=== PATIENT | female | born 1935 | race Caucasian/White ===

== ENCOUNTER 2021-03-16 11:19 | Emergency (ER) | payer MEDICARE, BC, SELFPAY ==
--- NOTE | 2021-03-16 11:26 | ED.URI ---
HPI - URI/Sore Throat General Chief Complaint: Upper Respiratory Infection Stated Complaint: upper respiratory Time Seen by Provider: 03/16/21 11:26 Source: patient and RN notes reviewed History of Present Illness HPI Narrative: Patient is an 85-year-old female who presents the urgent care with request of getting on neuropathy medications . Patient states that she has chronic neuropathy and has never taken medications for it but it is driving her crazy now . Patient states that for the last several days she is attempted to get a hold of her primary care physician, Dr. Poly Rosado, and has been unable to get through to their office. Patient states that she also has chronic constipation and takes vegetable laxatives every day. States that she did have a bowel movement yesterday but sometimes has nausea intermittently due to the laxatives and chronic constipation. Patient is currently denying of any abdominal pain, nausea or vomiting. Patient denies of any upper respiratory complaints with the exception of a runny nose. Patient states that she has been taking Tylenol just for everything . Patient states that she has been unable to get sleep due to the restless leg. Patient essentially has no acute complaints, everything is chronic she was just unable to get into her primary care physician. No other complaints. No acute distress noted. Patient aware of the plan of care. Some parts of this dictation were generated by voice recognition software and may contain typographical and/or grammatical inaccuracies. Related Data Home Medications Medication Instructions Recorded Confirmed glimepiride 4 mg DAILY 03/16/21 03/16/21 lisinopril 10 mg DAILY 03/16/21 03/16/21 rivaroxaban [Xarelto] 20 mg BID 03/16/21 03/16/21 Allergies Allergy/AdvReac Type Severity Reaction Status Date / Time No Known Allergies Allergy Verified 01/01/16 10:39 Review of Systems Review of Systems: Narrative: CONSTITUTIONAL: Denies fever, chills, or sweats. EYES: Denies visual changes, redness, or discharge. ENT: Denies rhinorrhea, congestion, sore throat, or otalgia. CARDIOVASCULAR: Denies chest pain, palpitations, or edema. RESPIRATORY: Denies cough or dyspnea. GASTROINTESTINAL: Denies abdominal pain, vomiting or diarrhea. Reports of intermittent nausea due to chronic constipation GENITOURINARY: Denies dysuria or hematuria. SKIN: Denies rash or itching. MUSCULOSKELETAL: Denies back pain, joint pain, or myalgia. NEUROLOGIC: Denies headache, numbness, or weakness. Reports of chronic restless leg syndrome PSYCHIATRIC: Denies anxiety or depression. All other systems reviewed are negative, except as documented in HPI. PMFSH Social History Social History Gender identity (if verbalized by the patient): Female Comments At the time of my signature, I reviewed and agree with the nursing past medical, surgical, social, and family history. There is no relevant family history pertinent to the patient complaint. Exam Narrative: Exam Narrative: GENERAL: This is a well-nourished, well-developed patient, in no apparent distress. HEAD: normocephalic, atraumatic. EYES: PERRL. Sclera clear/white. Vision is grossly intact. EARS: External ears normal, auditory canals clear and without drainage, TMs normal without perforation. Hearing grossly intact. NOSE: External nose normal with no obvious nasal discharge, nares without redness, clear rhinorrhea. THROAT: Mucous membranes moist, posterior pharynx clear. Mild postnasal drainage NECK: Neck supple, non-tender without lymphadenopathy CARDIOVASCULAR: Regular rate and rhythm without murmurs, gallops, or rubs. RESPIRATORY: Clear to auscultation. Breath sounds equal bilaterally. GASTROINTESTINAL: Abdomen soft, non-tender, nondistended. Bowel sounds are active. No guarding. SKIN: warm, intact with no suspicious lesions or rash, good texture and turgor. NEURO: awake, alert, and oriented to person, place and time. There were no
[2021-03-16 11:34] VITALS: BP 173/66; PULSE 80; RESP 20; TEMP 37.2; O2SAT 99
--- NOTE | 2021-03-16 11:36 | PC.NURSE ---
When asking patient about medical history patient is poor historian and not willing to offer information
--- NOTE | 2021-03-16 11:47 | PC.NURSE ---
After patient spoke with [employer] informed her that she wants a medication for her Neuropathy and a neurology referral
--- NOTE | 2021-03-16 11:54 | PC.NURSE ---
Syeda [employer] MAKER spoke with Dr Rosado office julio na attempt to schedule her an appoiment [employer] was informed they are not seeing patints over the age of 55 in the office due to COVID but would have Dr Rosado call the patient
== END 2021-03-16 12:05 | disposition home or self-care (01) ==
PROVIDERS: Emergency Provider Nurse Practitioner Family; PCP Family Medicine
DX: G62.9 Polyneuropathy, unspecified (principal); E11.9 Type 2 diabetes mellitus without complications; I10 Essential (primary) hypertension; M19.90 Unspecified osteoarthritis, unspecified site
CPT/HCPCS: 99211; G0463

== ENCOUNTER 2021-03-30 11:17 | Emergency (ER) | payer MEDICARE, BC, SELFPAY ==
[2021-03-30] VITALS (11 sets, daily range): BP systolic 129–154; BP diastolic 50–68; PULSE 66–79; RESP 11–18; TEMP 36.8; O2SAT 99
--- NOTE | 2021-03-30 11:23 | ECG_ITS ---
Measurements Intervals [place] Rate: 72 P: [place]: 0 QRS: -14 QRSD: 101 T: 19 QT: 399 QTc: 439 Interpretive Statements ATRIAL FIBRILLATION VENTRICULAR PREMATURE COMPLEX CANNOT RULE OUT SEPTAL INFARCT, AGE INDETERMINATE BASELINE ARTIFACT- I, II, III, AVR, AVL, AVF ABNORMAL ECG Electronically Signed On 03-30-2021 17:07:13 CDT by Karson Thorpe D.O.
[2021-03-30 12:01] LABS: Basophils Percent Auto 0.4 % (0.2-1.2); Eosinophils Percent Auto 0.3 % (0-4.4); Hematocrit 31.8 % (37.0-47.0); Immature Granulocyte Absolute 0.04 K/mm3 (0.00-0.031); Immature Granulocyte Percent A 0.4 % (0-0.5); Lymphocytes Absolute Auto 1.07 K/mm3 (0.9-3.2); Lymphocytes Percent Auto 10.2 % (18.3-44.2); Mean Corpuscular HGB Conc 31.4 g/dl (32-36); Mean Corpuscular Hemoglobin 25.4 pg (26-34); Mean Corpuscular Volume 80.7 fl (80-100); Mean Platelet Volume 9.7 fl (7.4-10.4); Monocytes Absolute Auto 0.7 K/mm3 (0.1-0.6); Monocytes Percent Auto 6.4 % (2.6-8.5); Neutrophils Absolute Auto 8.6 K/mm3 (1.3-6.7); Neutrophils Percent Auto 82.3 % (45.5-73.1); Platelet Count Result 393 k/mm3 (150-375); Red Blood Count 3.94 M/mm3 (4.2-5.4); White Blood Count 10.5 K/mm3 (4.5-10.0)
--- NOTE | 2021-03-30 12:14 | PC.NURSE ---
patient angry and verbally abusive with this RN while being taken from the waiting room to the exam room. angry that she has to keep telling the same thing to multiple people. patient states she just doesnt feel good and states she needs to be admitted. unwilling to provide details about her past medical history or her current complaints
[2021-03-30 12:15] LABS: Alanine Aminotransferase 12 U/L (4-35); Albumin Level 4.1 g/dL (3.5-5.1); Alkaline Phosphatase 69 U/L (38-126); Anion Gap 7 mmol/L (8-16); Aspartate Amino Transferase 29 U/L (14-36); Bilirubin,Total 0.5 mg/dL (0.2-1.3); Blood Urea Nitrogen 31 mg/dL (7-17); Calcium 9.4 mg/dL (8.4-10.2); Carbon Dioxide 25 mmol/L (22-30); Chloride 104 mmol/L (98-107); Estimated CRCL calculation 36 ml/min; Estimated Glomerular Filt Rate 53; Glucose 138 mg/dL (65-105); Lipase 52 U/L (23-300); Potassium 5.2 mmol/L (3.4-5.0); Sodium 136 mmol/L (137-145)
--- NOTE | 2021-03-30 12:25 | ECG_ITS ---
Measurements Intervals [place] Rate: 76 P: [place]: 0 QRS: -26 QRSD: 102 T: 9 QT: 397 QTc: 448 Interpretive Statements ATRIAL FIBRILLATION CANNOT RULE OUT SEPTAL INFARCT, AGE INDETERMINATE BASELINE ARTIFACT- II, III, AVF, V1, V3-V6 ABNORMAL ECG Electronically Signed On 03-30-2021 17:10:57 CDT by Karson Thorpe D.O.
[2021-03-30 13:04] LABS: Add Urine Microscopic? YES; Appearance Urine Clear (Clear); Bacteria Urine Trace /hpf; Bilirubin Urine Negative (Negative); Blood Urine Negative (Negative); Color Urine Yellow (Yellow); Glucose Urine UA Negative (Negative); Ketones Urine Negative (Negative); Leukocyte Esterase Ur 1+ LEU/UL (Negative); Mucus Urine Rare /lpf; Nitrate Urine Positive (Negative); Protein Urine Negative (Negative); RBC Urine 0-2 /hpf (0-2); Specific Grav Ur 1.014 (1.001-1.035); Squamous Epithelial Cell Urine Moderate /hpf (Few); Urobilinogen Urine Negative mg/dL (<2.0)
--- NOTE | 2021-03-30 13:31 | ED.GENADULT ---
HPI - General Adult General Chief complaint: Unspecified Stated complaint: Weakness x 2-3 weeks Time Seen by Provider: 03/30/21 13:02 Source: patient Mode of arrival: ambulatory Limitations: no limitations History of Present Illness HPI narrative: Patient is an 85-year-old female complaining of generalized weakness, no energy, nausea and occasional dizziness that started 2 to 3 weeks ago. Patient currently denies any nausea or dizziness at this time. Patient denies any speech or visual disturbance, focal weakness or numbness or unsteady gait. Patient denies any chest pain, shortness of breath, abdominal pain, vomiting, diarrhea, fever, chills or urinary symptoms. Related Data Home Medications Medication Instructions Recorded Confirmed glimepiride 4 mg DAILY 03/16/21 03/16/21 lisinopril 10 mg DAILY 03/16/21 03/16/21 rivaroxaban [Xarelto] 20 mg BID 03/16/21 03/16/21 Allergies Allergy/AdvReac Type Severity Reaction Status Date / Time No Known Allergies Allergy Verified 01/01/16 10:39 Review of Systems Review of Systems: All systems reviewed & are unremarkable except as noted in HPI and below Constitutional: Constitutional: Denies body ache(s), Denies chills, Denies excessive sweating, Denies fatigue, Denies fever(s), Denies headache(s), Denies lethargy, Denies malaise and Denies weight loss Eyes: Eyes: Denies blurry vision, Denies change in vision and Denies loss of vision ENT: Denies dizziness, Denies ear discharge, Denies headache(s), Denies lip swelling, Denies epistaxis, Denies nasal congestion, Denies neck pain, Denies throat swelling and Denies tongue swelling Cardiovascular: Cardiovascular: Denies chest pain, Denies chest pain at rest, Denies chest pain with activity, Denies diaphoresis, Denies rapid heart rate, Denies edema, Denies irregular heart rhythm, Denies lightheadedness, Denies palpitations, Denies dyspnea and Denies dyspnea on exertion Respiratory: Respiratory: Denies chest congestion, Denies cough, Denies hemoptysis, Denies dyspnea and Denies dyspnea on exertion Gastrointestinal: Gastrointestinal: Denies abdominal pain, Denies melena, Denies hematochezia, Denies diarrhea, Denies vomiting and Denies hematemesis Musculoskeletal: Musculoskeletal: Denies abnormal gait, Denies deformity, Denies joint swelling, Denies limited range of motion, Denies neck pain and Denies numbness Neurologic: Denies Abnormal speech present, Denies abnormal gait, Denies confusion, Denies headache(s), Denies focal weakness, Denies loss of vision, Denies numbness, Denies Other visual disturbances and Denies Sensory deficit (Neuro) Psychiatric: Psychiatric: Denies confusion, Denies depression, Denies auditory hallucinations, Denies homicidal ideation and Denies suicidal ideation Endocrine: Endocrine: Denies cold intolerance, Denies excessive sweating, Denies fatigue, Denies heat intolerance and Denies palpitations Hematologic/Lymphatic: Hematologic/Lymphatic: Denies easy bleeding and Denies easy bruising Allergic/Immunologic: Allergic/Immunologic: Denies lip swelling, Denies throat swelling and Denies tongue swelling [facility] Social History Social History Gender identity (if verbalized by the patient): Female Comments Past medical history: Diabetes, hypertension Family history: Unknown Social history: Non-smoker no EtOH use lives at home Exam Const: General: cooperative, healthy appearing, comfortable, no acute distress, well developed, alert and awake; No confusion Orientation/consciousness: oriented to person, oriented to place, oriented to time, patient oriented x3 and No confusion Limitations: no limitations HENMT: Head: normal to inspection, normocephalic and atraumatic Ears: hearing grossly normal bilaterally, TM normal on the right and TM normal on the left General nose exam: Normal external nose present, Normal nares present and No nasal discharge present Face an
[2021-03-30] MEDS: LACTATED RINGERS 1,000 ML 999 ML IV CONT (14:05)
--- NOTE | 2021-03-30 14:33 | PC.NURSE ---
This RN into patients room to turn off monitor alarm. Pt angry and states what am i waiting on? I stated that I believe they are waiting on fluids to infuse. This RN asked if she had gotten her CT yet and she yells I DONT WANT A CAT SCAN i apologized and stated that i would check with her nurse and she states ''ARENT YOU A NURSE!? i said yes i am but im not your nurse so I will check with your nurse to see what we are waiting on.
== END 2021-03-30 15:00 | disposition left against medical advice (07) ==
PROVIDERS: Emergency Provider Emergency Medicine; PCP Family Medicine
DX: R53.1 Weakness (principal); R42 Dizziness and giddiness; E11.9 Type 2 diabetes mellitus without complications; I10 Essential (primary) hypertension; I48.91 Unspecified atrial fibrillation; I49.3 Ventricular premature depolarization; R94.31 Abnormal electrocardiogram [ECG] [EKG]; Z79.01 Long term (current) use of anticoagulants; Z79.84 Long term (current) use of oral hypoglycemic drugs
CPT/HCPCS: 36415; 80053; 81001; 83690; 85025; 87077; 87086; 87186; 93005; 96360; 99283; J7120

== ENCOUNTER 2021-07-29 15:23 | Inpatient (IN) | payer MEDICARE, BC, SELFPAY ==
[2021-07-29] VITALS (17 sets, daily range): BP systolic 115–169; BP diastolic 45–93; PULSE 75–104; RESP 16–29; TEMP 36.1–37.1; O2SAT 29–100
--- NOTE | ~2021-07-29 | CT_ITS ---
EXAMINATION: CTA chest abdomen pelvis DATE: 07/29/2021 17:17 INDICATION: Back pain, increasing past 2 weeks. Abdominal pain. TECHNIQUE: Computed tomography (CT) of the chest, abdomen, and pelvis was performed with 100 cc Omnip aque 350 intravenous contrast. Automated exposure control and iterative reconstruction technique were employed. Exam dose: 1090.49 mGy-cm total exam DLP. COMPARISON: 01/01/2016 2 view chest 09/2015 CT chest 03/15/2015 CT pulmonary scan FINDINGS: CHEST CT: Stable 4.5 mm pleural-based opacity in the anterolateral right upper lobe (series 4 image 39) since . Stable 4.7 mm nodular density of the middle lobe (series 4 image 59), unchanged since 03/15/2015. 2.5 mm right lower lobe anterior basilar segment nodule (image 66). There is chronic prominent irregular soft tissue mass, consolidation and/or scarring in the posterior segment of the left upper lobe and increased up to 2 cm AP and 3.4 cm transverse dimension irregular soft tissue opacity in the superior segment of the left lower lobe. Increased soft tissue mass density measuring up to 18 x 20 mm dimension in the right lower lobe poste rior to the left infrahilar area. Cardiomegaly. Extensive thoracic aortic calcification without evidence of aneurysm or dissection. No pericardial or pleural effusion. No hilar or mediastinal mass lesion or lymphadenopathy. ABDOMEN/PELVIS CT: No hepatic, splenic, pancreatic or adrenal mass lesion. The gallbladder is present. No bile duct or p ancreatic duct dilatation. Prominent bilateral chronic pyelonephritis, more severe on the right. No urinary tract calculus or hydroureteronephrosis. Normal caliber of the abdominal aorta. Extensive atherosclerotic calcification of the abdominal aort a and branches. No intraperitoneal or retroperitoneal or pelvic mass lesion or lymphadenopathy is de tected. 3 x 3.6 cm fat containing umbilical hernia. Small sliding hiatal hernia. Normal appendix. There is extensive diverticulosis of left and right c olon; no evidence of diverticulitis. Bilateral total hip arthroplasties. There is associated considerable streak artifact. Extensive degenerative changes of the cervical, thoracic and lumbar spine. This includes prominent de generative change of the facet joints with associated grade 1 anterolisthesis at L4-5. IMPRESSION: Abnormal soft tissue mass densities in the left upper lobe and left lower lobe, with inc rease in size particularly in the superior segment left lower lobe and left lower lobe posterior to t he infrahilar area. Pulmonary primary and/or metastatic malignancy is a strong consideration. PET/CT imaging is recommended. Cardiomegaly Prominent bilateral chronic pyelonephritis Small sliding hiatal hernia Extensive left and right colon diverticulosis Status post bilateral total hip arthroplasty Reviewed, dictated and finalized at [facility] Reviewed, dictated and finalized at [facility]. IMPRESSION: Abnormal soft tissue mass densities in the left upper lobe and lef t lower lobe, with increase in size particularly in the superior segment left l ower lobe and left lower lobe posterior to the infrahilar area. Pulmonary prima ry and/or metastatic malignancy is a strong consideration. PET/CT imaging is re commended. Cardiomegaly Prominent bilateral chronic pyelonephritis Small sliding hiatal hernia Extensive left and right colon diverticulosis Status post bilateral total hip arthroplasty
--- NOTE | ~2021-07-29 | CT_ITS ---
EXAMINATION: CT brain wo con DATE: 08/01/2021 10:33 INDICATION: Confusion TECHNIQUE: Computed tomography (CT) of the head was performed without intravenous contrast. Sagittal and coronal reconstructions were performed. The mA was adjusted according to patient size. Iterative reconstruction technique was employed. The dose-length product was 605.33 mGy-cm. COMPARISON: None FINDINGS: Encephalomalacia in the left parietal and occipital lobes consistent with chronic infarct. There is a region of hypoattenuation with loss of lentz-white matter differentiation at the right temporal lobe consistent with age-indeterminate infarct, potentially acute/subacute. No acute intracranial hemorrha ge or abnormal extra axial fluid collection. There is mild scattered white matter hypoattenuation con sistent with chronic small vessel ischemic disease. Symmetric prominence of the sulci consistent wit h mild age-appropriate diffuse cerebral volume loss. Ventricles are normal and symmetric. No mass/ma ss effect. Changes of bilateral intraocular lens replacement. The orbits, paranasal sinuses and masto id air cells are normal. IMPRESSION: 1. Region of hypoattenuation of the right temporal lobe consistent with age-indeterminate infarct, po tentially acute/subacute. 2. 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 3. Age-related changes including mild diffuse volume loss and mild scattered white matter hypoattenua tion consistent with chronic small vessel ischemic disease. Reviewed, dictated and finalized at [facility]. [employer] IMPRESSION: 1. Region of hypoattenuation of the right temporal lobe consistent with age-ind eterminate infarct, potentially acute/subacute. 2. 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 3. Age-related changes including mild diffuse volume loss and mild scattered wh ite matter hypoattenuation consistent with chronic small vessel ischemic diseas e.
--- NOTE | 2021-07-29 15:50 | PC.NURSE ---
Provider at bedside.
[2021-07-29] MEDS: MORPHINE SULFATE (*CRX) 4 MG/ML INJ IV PUSH ×2 (16:06→22:04)
[2021-07-29 16:07] LABS: Add Urine Microscopic? YES; Appearance Urine Cloudy (Clear); Bilirubin Urine Negative (Negative); Blood Urine 3+ (Negative); Color Urine Yellow (Yellow); Glucose Urine UA Negative (Negative); Ketones Urine Negative (Negative); Leukocyte Esterase Ur Trace LEU/UL (Negative); Nitrate Urine Negative (Negative); Protein Urine 2+ mg/dL (Negative); RBC Urine >75 /hpf (0-2); Specific Grav Ur 1.018 (1.001-1.035); Squamous Epithelial Cell Urine Few /hpf (Few); Urobilinogen Urine Negative mg/dL (<2.0)
[2021-07-29] MEDS: ONDANSETRON INJ 4 MG/2 ML VIAL IV PUSH (16:07)
[2021-07-29 16:28] LABS: Basophils Absolute Auto 0.1 K/mm3 (0.0-0.1); Basophils Percent Auto 0.5 % (0.2-1.2); Eosinophils Absolute Auto 0.2 K/mm3 (0-0.3); Eosinophils Percent Auto 1.7 % (0-4.4); Immature Granulocyte Absolute 0.05 K/mm3 (0.00-0.031); Immature Granulocyte Percent A 0.4 % (0-0.5); Lymphocytes Absolute Auto 1.38 K/mm3 (0.9-3.2); Lymphocytes Percent Auto 11.2 % (18.3-44.2); Mean Corpuscular HGB Conc 29.5 g/dl (32-36); Mean Corpuscular Hemoglobin 22.2 pg (26-34); Mean Corpuscular Volume 75.1 fl (80-100); Mean Platelet Volume 10.2 fl (7.4-10.4); Monocytes Absolute Auto 1.1 K/mm3 (0.1-0.6); Monocytes Percent Auto 9.1 % (2.6-8.5); Neutrophils Absolute Auto 9.5 K/mm3 (1.3-6.7); Neutrophils Percent Auto 77.1 % (45.5-73.1); Platelet Count Result 314 k/mm3 (150-375); Red Blood Count 2.93 M/mm3 (4.2-5.4); White Blood Count 12.4 K/mm3 (4.5-10.0)
[2021-07-29 16:31] LABS: Hemoglobin 6.5 g/dL (12.0-15.0)
[2021-07-29 16:41] LABS: INR 3.5; Prothrombin Time 34.1 Seconds (11.1-14.7)
[2021-07-29 16:42] LABS: Partial Thromboplastin Time 42.3 SECONDS (22.3-36.8)
[2021-07-29 16:46] LABS: Alanine Aminotransferase 13 U/L (4-35); Albumin Level 3.7 g/dL (3.5-5.1); Alkaline Phosphatase 72 U/L (38-126); Anion Gap 6 mmol/L (8-16); Aspartate Amino Transferase 19 U/L (14-36); Bilirubin,Total 0.5 mg/dL (0.2-1.3); Blood Urea Nitrogen 53 mg/dL (7-17); Calcium 8.7 mg/dL (8.4-10.2); Carbon Dioxide 25 mmol/L (22-30); Chloride 109 mmol/L (98-107); Estimated CRCL calculation 34 ml/min; Estimated Glomerular Filt Rate 47; Glucose 149 mg/dL (65-110); Lipase 38 U/L (23-300); Potassium 4.3 mmol/L (3.4-5.0); Sodium 140 mmol/L (137-145)
[2021-07-29 16:51] LABS: Hypochromasia 2+ (NORMAL); Platelet Estimate Adequate (Adequate)
[2021-07-29 16:53] LABS: Anisocytosis 3+ (NORMAL)
[2021-07-29 16:54] LABS: Ovalocytes 1+ (NORMAL)
[2021-07-29 16:57] LABS: Acanthocytes 1+ (NORMAL)
--- NOTE | 2021-07-29 17:21 | ED.GENADULT ---
HPI - General Adult General Chief complaint: Back Pain/Injury Stated complaint: SICK/SOB/BACK PAIN Time Seen by Provider: 07/29/21 15:27 History of Present Illness HPI narrative: Patient is an 86-year-old female who presents ER with multiple complaints. She reports for the last 2 weeks she has been feeling sick to her stomach and having pain. She cannot describe the pain in her abdomen other than its uncomfortable. Denies radiation. She also reports that she has been having significant upper back pain for the last 2 weeks as well. She has applied some topical remedies with no relief. Denies any fall or recent injury. Related Data Home Medications Medication Instructions Recorded Confirmed glimepiride 4 mg DAILY 03/16/21 03/16/21 lisinopril 10 mg DAILY 03/16/21 03/16/21 rivaroxaban [Xarelto] 20 mg BID 03/16/21 03/16/21 Allergies Allergy/AdvReac Type Severity Reaction Status Date / Time No Known Allergies Allergy Verified 01/01/16 10:39 Review of Systems Review of Systems: All systems reviewed & are unremarkable except as noted in HPI and below Constitutional: Constitutional: Denies chills, Denies fever(s) and Reports weakness ENT: Denies nasal congestion and Denies sore throat Cardiovascular: Cardiovascular: Denies chest pain, Denies rapid heart rate and Denies radiating jaw, neck or arm pain Respiratory: Respiratory: Denies cough and Denies dyspnea Gastrointestinal: Gastrointestinal: Reports abdominal pain, Denies diarrhea, Reports nausea and Denies vomiting Genitourinary: Genitourinary: Denies hematuria, Denies nocturia and Denies flank pain Musculoskeletal: Musculoskeletal: Reports back pain, Denies arthralgias and Denies muscle cramps Neurologic: Denies focal weakness and Denies numbness [facility] Past Medical History Medical History (Updated 07/29/21 @ 21:06 by Junior Canseco MD) Atrial fibrillation COPD (chronic obstructive pulmonary disease) History of congestive heart failure Hypertension Surgical History Surgical History (Updated 07/29/21 @ 17:26 by Junior Canseco MD) History of hip replacement, total Bilateral History of hysterectomy Social History Social History Gender identity (if verbalized by the patient): Female Exam Narrative: GENERAL: Uncomfortable-appearing, obese, and in no acute distress. HEAD: Normocephalic, atraumatic. EYES: PERRL and EOMI. ENT: Mucous membranes moist. CHEST: Clear to auscultation. No respiratory distress. HEART: Regular rate and rhythm. Normal peripheral pulses. ABDOMEN: Soft, nontender, nondistended. Back: No reproducible tenderness of the thoracic or lumbar spine. Mild right paraspinal muscle upper thoracic tenderness without palpable spasm. No swelling or bruising or abrasion. EXTREMITIES: Normal range of motion. No edema. SKIN: Warm, dry, no rash. NEURO: Alert and oriented x3. Course Course Emergency Course: Patient informed results. Admit to hospitalist service. Dr. Carrasquillo with GI consulted. Will give patient Protonix and 2 units of blood. No urinary sx, will await urine cx results. Vital Signs Vital signs: Vital Signs Temperature 98.6 F 07/29/21 15:24 Pulse Rate 88 07/29/21 15:24 Respiratory Rate 17 07/29/21 15:24 Blood Pressure 118/61 07/29/21 15:24 Pulse Oximetry 96 07/29/21 15:24 Temperature 98.5 F 07/29/21 20:30 Pulse Rate 87 07/29/21 20:30 Respiratory Rate 23 H 07/29/21 20:30 Blood Pressure 152/61 H 07/29/21 20:30 Pulse Oximetry 97 07/29/21 20:30 Medical Decision Making Vital Signs Vital Signs: Vital Signs Temperature 98.6 F 07/29/21 15:24 Pulse Rate 88 07/29/21 15:24 Respiratory Rate 17 07/29/21 15:24 Blood Pressure 118/61 07/29/21 15:24 Pulse Oximetry 96 07/29/21 15:24 Temperature 98.5 F 07/29/21 20:30 Pulse Rate 87 07/29/21 20:30 Respiratory Rate 23 H 07/29/21 20:30 Blood Pressure 152/61
[2021-07-29] MEDS: PANTOPRAZOLE SODIUM IV 40 MG VIAL IV PUSH (18:56)
[2021-07-29] MEDS: SODIUM CHLORIDE 0.9% IV 250 ML 30 ML IV CONT (20:11)
--- NOTE | 2021-07-29 20:53 | PM.IMHP ---
H&P: HPI History of Present Illness Date/Time: 07/29/21 20:53 Chief Complaint: Back pain Narrative: 86-year-old female with past medical history of CHF, COPD, atrial fibrillation on chronic anticoagulation, and diabetes mellitus who presented to the ER with back pain. Patient has had difficulty with pain up and down her entire spine for many years. The PA at her caregivers office gave her a prescription for Tylenol codeine last month. She recently ran out of the Tylenol codeine. She reports that her pain is now severe. She does not like that PA at the doctor's office and was waiting to get in to see her regular primary care doctor who is evidently out of town. She reports that no other doctor will refill her pain medications that she came to the ER for evaluation. She reports that she has still been able to ambulate with her walker. She denies any radiation of her back pain. She has tried some [id number] topical medications without relief in her symptoms. She also tried smoking marijuana which did not help. The patient had been prescribed gabapentin in the past but soundly the patient did not take this for very long or she did not take it at all. She stated, to the nursing staff, that the gabapentin did not work. Incidentally, the patient's labs in the ER demonstrated a hemoglobin of 6.5. Patient has been having 2 weeks of stomach ache. She reports that the pain in her abdomen is uncomfortable and she is unable to provide any further details any further details regarding the pain. The pain does not radiate and she denies any eliciting or relieving factors. The patient is a poor historian. She is alert oriented x2 at the time of my evaluation. She denies any hematochezia or melena. She did have Hemoccult-positive stools in the ER. She denies any changes in urinary frequency or urgency. She denies dysuria. She denies difficulty with urinary incontinence. Review of Systems Review of Systems: 12 systems were reviewed with pertinent positives and negatives per HPI. Except as documented in the HPI, all other systems were reviewed and are negative. [facility] Past Medical History Medical History (Updated 07/30/21 @ 02:41 by Thao Ann DO) Aortic stenosis Echocardiogram February 2015: EF 70%, moderate biatrial enlargement, mild aortic stenosis with valve area 2.2 cm, mild aortic valve regurgitation, mild pulmonary hypertension RVSP of 41 Atrial fibrillation Bipolar disorder Chronic kidney disease, stage 3 Baseline creatinine around 1 COPD (chronic obstructive pulmonary disease) PFTs October 2015: Mild to moderate obstructive ventilatory defect with severe small airway disease with acute bronchodilator response with mild restrictive ventilatory defect and markedly decreased DLCO Diabetes mellitus GERD (gastroesophageal reflux disease) Hemorrhoids History of congestive heart failure Hypertension Lung mass Present since 2009 Pulmonary hypertension Surgical History Surgical History (Updated 07/29/21 @ 21:58 by Thao Ann DO) History of bladder suspension procedure History of colonoscopy with polypectomy (2011) Dr. Carrasquillo History of hip replacement, total Bilateral History of hysterectomy Status post cataract extraction of both eyes with insertion of intraocular lens Family History Family History Mother Hypertension Heart disease Diabetes mellitus Father Acute myocardial infarction Social History Social History (Updated 07/30/21 @ 02:37 by Thao Ann DO) Social History: She is since February 2020 and lives with 1 of her daughters. She has 2 daughters and 2 sons. She smoked 1.5 packs of cigarettes per day for 30 years and quit in 1984. She ambulates with a walker. Primary care physician: Dr. Poly Rosado Code status: Full code per EMR. Patient does not have advanced directives in place. Smoking packs per day: 1.5 Smoking
--- NOTE | 2021-07-29 21:15 | ADMGEN ---
This patient, Lucia Kaur, was admitted to IMU Room 232-01. Patient/family oriented to hospital policies and general routines including ID bracelet, bed and alarms, visiting hours, pain management, procedures, bathroom and other care routines, personal items, smoking policy, room service/diet, and visiting hours. Information on how to activate the Rapid Response Team has been discussed. Patient/Family are encouraged to report perceived risks to care and to ask questions if they do not understand what they are told or what they should do.
[2021-07-29 21:23] LABS: Glucose Point of Care 145 mg/dl (65-105)
[2021-07-29 23:53] LABS: Glucose Point of Care 125 mg/dl (65-105)
[2021-07-30] VITALS (25 sets, daily range): BP systolic 115–170; BP diastolic 49–86; PULSE 68–88; RESP 16–22; TEMP 36.6–37.6; O2SAT 94–98
[2021-07-30 04:39] LABS: Glucose Point of Care 135 mg/dl (65-105)
[2021-07-30 05:19] LABS: Hematocrit 27.1 % (37.0-47.0); Hemoglobin 8.3 g/dL (12.0-15.0); Mean Corpuscular HGB Conc 30.6 g/dl (32-36); Mean Corpuscular Hemoglobin 24.3 pg (26-34); Mean Corpuscular Volume 79.5 fl (80-100); Mean Platelet Volume 10.3 fl (7.4-10.4); Platelet Count Result 275 k/mm3 (150-375); Red Blood Count 3.41 M/mm3 (4.2-5.4); Red Cell Distribution Width 19.6 % (11.5-14.5); White Blood Count 12.2 K/mm3 (4.5-10.0)
[2021-07-30 05:45] LABS: Anion Gap 6 mmol/L (8-16); Blood Urea Nitrogen 42 mg/dL (7-17); Calcium 8.5 mg/dL (8.4-10.2); Carbon Dioxide 25 mmol/L (22-30); Chloride 110 mmol/L (98-107); Estimated CRCL calculation 41 ml/min; Estimated Glomerular Filt Rate 60; Glucose 145 mg/dL (65-110); Potassium 4.3 mmol/L (3.4-5.0); Sodium 141 mmol/L (137-145)
[2021-07-30 08:03] LABS: INR 1.5
[2021-07-30 08:04] LABS: Partial Thromboplastin Time 29.9 SECONDS (22.3-36.8)
[2021-07-30] MEDS: PANTOPRAZOLE SODIUM IV 40 MG VIAL IV PUSH ×2 (09:05→18:18)
--- NOTE | 2021-07-30 09:30 | P.PNIM_ITS ---
Progress Note: A&P Assessment and Plan (1) Acute GI bleeding: Code(s): K92.2 - Gastrointestinal hemorrhage, unspecified Status: Acute Assessment and Plan: * acute on chronic anemia likely due to chronic GI blood loss * Hemoccult-positive stools * Gastroenterology consulted * NPO for scheduled EGD * Protonix 40 mg IV b.i.d. * Trend labs (2) Anemia: Qualifiers: Anemia type: iron deficiency Iron deficiency anemia type: chronic blood loss Qualified Code(s): D50.0 - Iron deficiency anemia secondary to blood loss (chronic) Code(s): D64.9 - Anemia, unspecified Status: Acute Assessment and Plan: * Acute blood loss anemia * Hemoccult blood positive * H/H 6.5/8.3 MCV 75.1 on admission, up to 8.3/27.1 * 2 Units of PRBC given 07/29/21 * Trend labs * Transfuse as needed * check anemia labs (3) Lung mass: Code(s): R91.8 - Other nonspecific abnormal finding of lung field Status: Acute Assessment and Plan: * history of chronic lung masses present since 2009 * CT imaging shows possible worsening of condition * PET scan recommended outpatient * masses previously had been diagnosed as fungal infection according to prior records (4) Diabetes mellitus: Qualifiers: Diabetes mellitus complication status: without complication Diabetes mellitus fdc insulin use: without fdc use Diabetes mellitus type: type 2 Qualified Code(s): E11.9 - Type 2 diabetes mellitus without complicatio ns Code(s): E11.9 - Type 2 diabetes mellitus without complications Status: Acute Assessment and Plan: * Glucose 145 * diet-controlled diabetes mellitus * sliding scale insulin * Accu-Cheks a.c. HS * hypoglycemia protocol (5) Hypertension: Code(s): I10 - Essential (primary) hypertension Status: Acute Assessment and Plan: * BP is elevated 160/86 * Continue lisinopril 10mg PO daily * Trend BP * Adjust medications as needed (6) Leukocytosis: Code(s): D72.829 - Elevated white blood cell count, unspecified Status: Acute Assessment and Plan: * WBC is 12.2 * Could be from malignancy * Continue to trend * repeat UA for a culture (7) [employer] current use of anticoagulant: Code(s): Z79.01 - [employer] (current) use of anticoagulants Status: Acute Assessment and Plan: * Xarelto at home for chronic afib * Hold due to active bleed * Chadvas is 6 anticoagulation is indicated * Probably will need Time Spent With Patient Time with patient: Greater than 35 minutes Subjective Date/time seen: 07/30/21 0930 Interval history: Date/Time: 07/29/21 20:53 Narrative: 86-year-old female with past medical history of CHF, COPD, atrial fibrillation on chronic anticoagulation, and diabetes mellitus who presented to the ER with back pain. Patient has had difficulty with pain up and down her entire spine for many years. The PA at her caregivers office gave her a prescription for Tylenol codeine last month. She recently ran out of the Tylenol codeine. She reports that her pain is now severe. She does not like that PA at the doctor's office and was waiting to get in to see her regular primary care doctor who is evidently out of town. She reports that no other doctor will refill her pain medications that she came to the ER for evaluation. She reports that she has still been
--- NOTE | 2021-07-30 09:30 | PM.IMPN ---
Progress Note: A&P Assessment and Plan (1) Acute GI bleeding: Code(s): K92.2 - Gastrointestinal hemorrhage, unspecified Status: Acute Assessment and Plan: acute on chronic anemia likely due to chronic GI blood loss Hemoccult-positive stools Gastroenterology consulted NPO for scheduled EGD Protonix 40 mg IV b.i.d. Trend labs (2) Anemia: Qualifiers: Anemia type: iron deficiency Iron deficiency anemia type: chronic blood loss Qualified Code(s): D50.0 - Iron deficiency anemia secondary to blood loss (chronic) Code(s): D64.9 - Anemia, unspecified Status: Acute Assessment and Plan: Acute blood loss anemia Hemoccult blood positive H/H 6.5/8.3 MCV 75.1 on admission, up to 8.3/27.1 2 Units of PRBC given 07/29/21 Trend labs Transfuse as needed check anemia labs (3) Lung mass: Code(s): R91.8 - Other nonspecific abnormal finding of lung field Status: Acute Assessment and Plan: history of chronic lung masses present since 2009 CT imaging shows possible worsening of condition PET scan recommended outpatient masses previously had been diagnosed as fungal infection according to prior records (4) Diabetes mellitus: Qualifiers: Diabetes mellitus complication status: without complication Diabetes mellitus half-way insulin use: without half-way use Diabetes mellitus type: type 2 Qualified Code(s): E11.9 - Type 2 diabetes mellitus without complications Code(s): E11.9 - Type 2 diabetes mellitus without complications Status: Acute Assessment and Plan: Glucose 145 diet-controlled diabetes mellitus sliding scale insulin Accu-Cheks a.c. HS hypoglycemia protocol (5) Hypertension: Code(s): I10 - Essential (primary) hypertension Status: Acute Assessment and Plan: BP is elevated 160/86 Continue lisinopril 10mg PO daily Trend BP Adjust medications as needed (6) Leukocytosis: Code(s): D72.829 - Elevated white blood cell count, unspecified Status: Acute Assessment and Plan: WBC is 12.2 Could be from malignancy Continue to trend repeat UA for a culture (7) [facility] current use of anticoagulant: Code(s): Z79.01 - [facility] (current) use of anticoagulants Status: Acute Assessment and Plan: Xarelto at home for chronic afib Hold due to active bleed Chadvas is 6 anticoagulation is indicated Probably will need Time Spent With Patient Time with patient: Greater than 35 minutes Subjective Date/time seen: 07/30/21 0930 Interval history: Date/Time: 07/29/21 20:53 Narrative: 86-year-old female with past medical history of CHF, COPD, atrial fibrillation on chronic anticoagulation, and diabetes mellitus who presented to the ER with back pain. Patient has had difficulty with pain up and down her entire spine for many years. The PA at her caregivers office gave her a prescription for Tylenol codeine last month. She recently ran out of the Tylenol codeine. She reports that her pain is now severe. She does not like that PA at the doctor's office and was waiting to get in to see her regular primary care doctor who is evidently out of town. She reports that no other doctor will refill her pain medications that she came to the ER for evaluation. She reports that she has still been able to ambulate with her walker. She denies any radiation of her back pain. She has tried some [id number] topical medications without relief in her symptoms. She also tried smoking marijuana which did not help. The patient had been prescribed gabapentin in the past but soundly the patient did not take this for very long or she did not take it at all. She stated, to the nursing staff, that the gabapentin did not work. Incidentally, the patient's labs in the ER demonstrated a hemoglobin of 6.5. Patient has been villasenor
--- NOTE | 2021-07-30 11:46 | WPDGICN ---
Assessment and Plan Assessment and plan (1) Acute GI bleeding: Code(s): K92.2 - Gastrointestinal hemorrhage, unspecified Status: Acute Assessment and Plan: Patient with blood in her stools. Somewhat suspicious for upper GI bleeding given her elevated BUN. Plan to evaluate for EGD today. She does have some poorly described abdominal pain that may be related to this. Initial evaluation with EGD. Colonoscopy may be necessary depending on results of EGD. She does have a distant history of colon polyps. (2) Anemia: Qualifiers: Anemia type: iron deficiency Iron deficiency anemia type: chronic blood loss Qualified Code(s): D50.0 - Iron deficiency anemia secondary to blood loss (chronic) Code(s): D64.9 - Anemia, unspecified Status: Acute Assessment and Plan: Anemia is. Suspect some component from GI blood loss. She may have chronic anemia her baseline is somewhat uncertain at this point. She has been transfused overnight need to monitor to ensure to stable. GI evaluation and progress. (3) Lung mass: Code(s): R91.8 - Other nonspecific abnormal finding of lung field Status: Acute Assessment and Plan: Patient has several lung masses. The etiology is somewhat unclear. Fungal infection has been suspected. 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 This will need to be held until we are certain is safe to resume. (6) Bipolar disorder: Code(s): F31.9 - Bipolar disorder, unspecified Status: Inactive GI Consult Note Consult date/time: 07/30/21 11:46 HPI: Lucia Stinson Black is a 86 year old female I am asked to see because of occult blood in stool and anemia. Patient has history of some dementia. Currently resides at a care center. Apparently has had back pain for several weeks. She has had vague abdominal pain for brief interval of time. Upon presented the emergency was found to have Hemoccult-positive stools. Elevated BUN raises a question of upper GI blood loss. ER physician describes blood identified as darkish in nature. Patient does have a distant history of colon polyps. She cannot specify the type pain she has had in her abdomen any more clearly. Upon presented the ER hemoglobin of 6.5 was identified. She is chronically on is a Xarelto because of atrial fibrillation. Review of Systems Review of Systems: All systems reviewed & are unremarkable except as noted in HPI and below [facility] Past Medical History Medical History (Updated 07/30/21 @ 11:49 by Asher Carrasquillo MD) Aortic stenosis Echocardiogram February 2015: EF 70%, moderate biatrial enlargement, mild aortic stenosis with valve area 2.2 cm, mild aortic valve regurgitation, mild pulmonary hypertension RVSP of 41 Atrial fibrillation Bipolar disorder Chronic kidney disease, stage 3 Baseline creatinine around 1 COPD (chronic obstructive pulmonary disease) PFTs October 2015: Mild to moderate obstructive ventilatory defect with severe small airway disease with acute bronchodilator response with mild restrictive ventilatory defect and markedly decreased DLCO Diabetes mellitus GERD (gastroesophageal reflux disease) Hemorrhoids History of congestive heart failure Hypertension Lung mass Present since 2009 Pulmonary hypertension Surgical History Surgical History (Updated 07/29/21 @ 21:58 by Thao Ann DO) History of bladder suspension procedure History of colonoscopy with polypectomy (2011) Dr. Carrasquillo History of hip replacement, total Bilateral History of hysterectomy Status post cataract extraction of both eyes with in
--- NOTE | 2021-07-30 11:51 | PC.NURSE ---
Patient to GI lab via stretcher. Report given to MARINA Barros.
--- NOTE | 2021-07-30 12:09 | SUR.PREOP ---
Pt appears to be resting comfortably in stretcher. VS as charted, NAD. pt given warm blankets and call lights. pt states her name but otherwise state 'I don't remember'.
[2021-07-30] MEDS: LACTATED RINGERS 1,000 ML 150 ML IV CONT (12:13)
--- NOTE | 2021-07-30 12:24 | WPDANESEPPF ---
Anes - Initial Pre Proc Eval Procedure: Operation Date: 07/30/21 14:00 Proposed Procedures p Esophagogastroduodenoscopy - Asher Carrasquillo MD Date/Time: 07/30/21 12:24 Surgeon: Martine Grayson MD Pre Op Diagnosis: GI Bleed,Anemia,Lung Masses Patient Data Age: 86 Gender: F Height: 1.63 m Weight: 80.2 kg Last Vital Signs Temp 37.5 C 07/30/21 12:06 Pulse 81 07/30/21 12:06 Resp 20 07/30/21 12:06 BP 162/68 H 07/30/21 12:06 Pulse Ox 96 07/30/21 12:06 Allergies Allergy/AdvReac Type Severity Reaction Status Date / Time No Known Allergies Allergy Verified 07/30/21 12:03 Home Medications Medication Instructions Recorded Confirmed Type lisinopril 10 mg PO DAILY 03/16/21 07/29/21 History rivaroxaban [Xarelto] 20 mg PO DAILY 03/16/21 07/29/21 History acetaminophen-codeine 1 tablet PO Q6H 07/29/21 07/29/21 History Laboratory Tests 07/29/21 07/29/21 07/29/21 15:39 16:14 16:14 WBC 12.4 K/mm3 H K/mm3 (4.5-10.0) RBC 2.93 M/mm3 L M/mm3 (4.2-5.4) Hgb 6.5 g/dL L* D g/dL (12.0-15.0) Hct 22.0 % L % (37.0-47.0) MCV 75.1 fl L fl (80-100) MCH 22.2 pg L pg (26-34) MCHC 29.5 g/dl L g/dl (32-36) RDW 19.0 % H % (11.5-14.5) Plt Count 314 k/mm3 k/mm3 (150-375) MPV 10.2 fl fl (7.4-10.4) Immature Gran % (Auto) 0.4 % % (0-0.5) Neut % (Auto) 77.1 % H % (45.5-73.1) Lymph % (Auto) 11.2 % L % (18.3-44.2) [place] % (Auto) 9.1 % H % (2.6-8.5) Eos % (Auto) 1.7 % % (0-4.4) Baso % (Auto) 0.5 % % (0.2-1.2) Lymph # (Auto) 1.38 K/mm3 K/mm3 (0.9-3.2) [place] # (Auto) 1.1 K/mm3 H K/mm3 (0.1-0.6) Eos # (Auto) 0.2 K/mm3 K/mm3 (0-0.3) Baso # (Auto) 0.1 K/mm3 K/mm3 (0.0-0.1) Abs Immat Gran (auto) 0.05 K/mm3 H K/mm3 (0.00-0.031) Absolute Neuts (auto) 9.5 K/mm3 H K/mm3 (1.3-6.7) Absolute Nucleated RBC 0.0 K/mm3 K/mm3 (0.0-0.012) Nucleated RBC % 0.0 % % (0.0-0.2) Platelet Estimate Adequate (Adequate) Hypochromasia 2+ (NORMAL) Anisocytosis 3+ (NORMAL) Ovalocytes 1+ (NORMAL) Acanthocytes (Spur) 1+ (NORMAL) PT 34.1 Seconds H Seconds (11.1-14.7) INR 3.5 APTT 42.3 SECONDS H SECONDS (22.3-36.8) Sodium Potassium Chloride Carbon Dioxide Anion Gap BUN Creatinine Estim Creat Clear Calc Estimated GFR Glucose POC Capillary Glucose Calcium Total Bilirubin AST ALT Alkaline Phosphatase Total Protein Albumin Lipase Urine Color Yellow (Yellow) Urine Appearance Cloudy H (Clear) Urine pH 8.0 (5.0-9.0) Ur Specific [place] 1.018 (1.001-1.035) Urine Protein 2+ mg/dL H mg/dL (Negative) Urine Glucose (UA) Negative mg/dL mg/dL (Negative) Urine Ketones Negative mg/dL mg/dL (Negative) Ur Blood (Man) 3+ H (Negative) Urine Nitrate Negative (Negative) Urine Bilirubin Negative (Negative) Urine Urobilinogen Negative mg/dL mg/dL (<2.0) Leukocyte Esterase Rfl Trace GEOVANY/UL H GEOVANY/UL (Negative) Urine RBC >75 /hpf H /hpf (0-2) Urine WBC 4-6 /hpf H /hpf Ur Squamous Epith Cells Few /hpf /hpf (Few) Blood Type Antibody Screen Crossmatch 07/29/21 07/29/21 07/29/21 16:14 17:38 21:13 WBC RBC Hgb Hct MCV MCH MCHC RDW Plt Count MP
--- NOTE | 2021-07-30 13:33 | PC.NURSE ---
Patient returned to room following EGD. Report received from MARINA Brown.
--- NOTE | 2021-07-30 13:51 | PC.NURSE ---
On 07/30/21, the student, [Honey Corbett], provided care and completed [facility] documentation on this patient. I have reviewed the student's documentation and agree with the findings.
[2021-07-30 14:07] LABS: Glucose Point of Care 150 mg/dl (65-105)
--- NOTE | 2021-07-30 14:53 | PCOTNOTE ---
Attempted to see patient for OT evaluation this afternoon. Patient just finished working with PT and declines getting up again. Will continue to attempt.
[2021-07-30] MEDS: CODEINE SULFATE (*CRX) 30 MG TABLET PO (14:56)
[2021-07-30] MEDS: ACETAMINOPHEN/CODEINE (*CRX) 300/30 MG TABLET 1 TAB PO (14:56)
[2021-07-30] MEDS: PEG (High)/E-LYTE SOLN 4,000 ML BTL 4000 ML PO (15:55)
[2021-07-30 16:36] LABS: Glucose Point of Care 143 mg/dl (65-105)
[2021-07-30] MEDS: ONDANSETRON INJ 4 MG/2 ML VIAL IV PUSH (18:24)
--- NOTE | 2021-07-30 21:31 | PC.NURSE ---
Have been encouraging the patient to drink Golytely for colonoscopy tomorrow. Explained the importance of the procedure and bowel prep. Patient continues to refuse Golytely. Dr. Carrasquillo and laborer [facility] notified.
[2021-07-31] VITALS (12 sets, daily range): BP systolic 122–152; BP diastolic 52–73; PULSE 69–84; RESP 20–22; TEMP 36.2–37.1; O2SAT 95–99
[2021-07-31 00:03] LABS: Glucose Point of Care 127 mg/dl (65-105)
[2021-07-31] MEDS: ACETAMINOPHEN/CODEINE (*CRX) 300/30 MG TABLET 1 TAB PO ×3 (01:07→17:22)
[2021-07-31] MEDS: CODEINE SULFATE (*CRX) 30 MG TABLET PO ×3 (01:07→17:22)
[2021-07-31 05:54] LABS: Basophils Absolute Auto 0.1 K/mm3 (0.0-0.1); Basophils Percent Auto 0.4 % (0.2-1.2); Eosinophils Absolute Auto 0.3 K/mm3 (0-0.3); Hemoglobin 8.5 g/dL (12.0-15.0); Immature Granulocyte Absolute 0.06 K/mm3 (0.00-0.031); Immature Granulocyte Percent A 0.4 % (0-0.5); Immature Platelet Fraction Pct 4.7 % (0.9-11.2); Immature Reticulocyte Fraction 33.1 % (3.0-15.9); Lymphocytes Absolute Auto 1.59 K/mm3 (0.9-3.2); Lymphocytes Percent Auto 11.5 % (18.3-44.2); Mean Corpuscular HGB Conc 30.4 g/dl (32-36); Mean Corpuscular Hemoglobin 23.9 pg (26-34); Mean Corpuscular Volume 78.9 fl (80-100); Mean Platelet Volume 10.2 fl (7.4-10.4); Monocytes Absolute Auto 1.6 K/mm3 (0.1-0.6); Monocytes Percent Auto 11.6 % (2.6-8.5); Neutrophils Absolute Auto 10.2 K/mm3 (1.3-6.7); Neutrophils Percent Auto 74.1 % (45.5-73.1); Platelet Count Result 294 k/mm3 (150-375); Red Blood Count 3.55 M/mm3 (4.2-5.4); Red Cell Distribution Width 19.9 % (11.5-14.5); Reticulocyte Hemoglobin Conten 20.5 pg (28.2-35.7); Reticulocyte Percent 1.85 % (0.7-4.3); Reticulocytes Absolute 0.07 B/L (32.2-175.7); White Blood Count 13.8 K/mm3 (4.5-10.0)
[2021-07-31 06:01] LABS: Iron 18 ug/dL (37-170)
[2021-07-31 06:05] LABS: Alanine Aminotransferase 12 U/L (4-35); Albumin Level 3.6 g/dL (3.5-5.1); Alkaline Phosphatase 59 U/L (38-126); Anion Gap 7 mmol/L (8-16); Aspartate Amino Transferase 24 U/L (14-36); Bilirubin,Total 1.2 mg/dL (0.2-1.3); Blood Urea Nitrogen 26 mg/dL (7-17); Calcium 8.6 mg/dL (8.4-10.2); Carbon Dioxide 26 mmol/L (22-30); Chloride 105 mmol/L (98-107); Estimated CRCL calculation 41 ml/min; Estimated Glomerular Filt Rate 60; Glucose 140 mg/dL (65-110); Potassium 4.1 mmol/L (3.4-5.0); Sodium 138 mmol/L (137-145)
[2021-07-31 06:06] LABS: Glucose Point of Care 133 mg/dl (65-105)
[2021-07-31 06:08] LABS: Transferrin 265 mg/dL (206-381)
[2021-07-31 06:11] LABS: Percent Iron Saturation 5 % (20-50)
[2021-07-31 07:06] LABS: Folic Acid 14.8 ng/mL (2.76->20)
[2021-07-31 07:46] LABS: Anisocytosis 1+ (NORMAL); Hypochromasia 2+ (NORMAL); Microcytosis 1+ (NORMAL); Platelet Estimate Adequate (Adequate); Poikilocytosis 2+ (NORMAL)
[2021-07-31 07:47] LABS: Ovalocytes 1+ (NORMAL); Schistocytes 1+ (NORMAL)
--- NOTE | 2021-07-31 08:36 | WPDGIPROGNO ---
Progress Note: A&P Assessment and Plan (1) Acute GI bleeding: Code(s): K92.2 - Gastrointestinal hemorrhage, unspecified Status: Acute Assessment and Plan: GI bleeding resolved. Appears to have improved on holding anticoagulation. Etiology unclear. Upper GI source excluded by EGD although esophageal was dilated. Patient refusing colonoscopy or any other additional GI testing. Would advise holding anticoagulation because of this. She does have a prior history of colon polyps so this or any other lesion potentially could be causing her bleeding. (2) [facility] current use of anticoagulant: Code(s): Z79.01 - [facility] (current) use of anticoagulants Status: Acute Assessment and Plan: I would suggest holding anticoagulation because this undoubtedly contributes to her bleeding. Patient refuses investigation for bleeding this point. (3) Atrial fibrillation: Code(s): I48.91 - Unspecified atrial fibrillation Status: Acute (4) Lung mass: Code(s): R91.8 - Other nonspecific abnormal finding of lung field Status: Acute Subjective Date/time seen: 07/31/21 08:36 Patient admitted with GI bleeding. EGD revealed distal esophageal web that was dilated. Patient has improved somewhat after transfusion. Colonoscopy was anticipated but patient adamantly refuses this or any other additional testing. She does have a prior history of colon polyps. No active bleeding described at this time. Anticoagulation hold. Review of Systems Review of Systems: All systems reviewed & are unremarkable except as noted in HPI and below Exam Narrative: Physical exam reveals patient be alert her vital signs are stable. HEENT exam reveals no icterus. Lungs are clear. Heart without murmur. Abdomen bowel sounds present soft nontender with no organomegaly. Objective Data Vital Signs Vital Signs: Vital Signs - 24 hr 07/30/21 09:06 07/30/21 10:00 07/30/21 12:06 Temperature 99.2 F 99.5 F Pulse Rate 78 83 81 Respiratory Rate 20 20 Blood Pressure 170/66 H 162/68 H Pulse Oximetry 94 96 07/30/21 12:59 07/30/21 13:09 07/30/21 13:19 Temperature 98 F Pulse Rate 86 81 80 Respiratory Rate 20 18 20 Blood Pressure 117/49 L 115/53 L 131/76 Pulse Oximetry 95 96 95 07/30/21 14:00 07/30/21 14:07 07/30/21 16:00 Temperature 99.6 F Pulse Rate 80 79 77 Respiratory Rate 22 H Blood Pressure 150/53 H Pulse Oximetry 95 07/30/21 16:34 07/30/21 18:00 07/30/21 19:21 Temperature 98.9 F 98.7 F Pulse Rate 79 77 87 Respiratory Rate 20 19 Blood Pressure 152/61 H 147/63 H Pulse Oximetry 95 97 07/30/21 20:00 07/30/21 22:00 07/31/21 00:00 Temperature 98.6 F Pulse Rate 75 77 82 Respiratory Rate 21 H Blood Pressure 151/70 H Pulse Oximetry 98 07/31/21 02:00 07/31/21 04:00 Temperature 98.7 F Pulse Rate 74 78 Respiratory Rate 20 Blood Pressure 148/68 H Pulse Oximetry 99 Intake/Output Intake/Output: Intake & Output 07/28/21 07/29/21 07/30/21 07/31/21 23:59 23:59 23:59 23:59 Intake Total 336 1008 240 Output Total 300 750 850 Balance 36 258 -610 Meds/Results Medications: Active Medications Generic Name Dose Route Start Last Admin Trade Name Freq PRN Reason Stop Dose Admin Acetaminophen/Codeine Phosphate 1 tab 07/30/21 02:32 07/31/21 01:07 Acetaminophen/Codeine (*Crx) 300/30 Mg Tablet PO 08/29/21 02:31 1 tab Q6H PRN Administration Pain 7-10 Codeine Sulfate 30 mg 07/30/21 02:44 07/31/21 01:07 Codeine Sulfate (*Crx) 30 Mg Tablet PO 08/29/21 02:43 30 mg Q6H PRN Administration Pain 7-10 Dextrose 12.5 gm 07/29/21 22:05 Dextrose 50% 25 Gm/50 Ml Syringe IV PUSH PRN PRN Hypoglycemia Protocol Docusate Sodium 100 mg 07/31/21 09:00 Docusate Sodium 100 Mg Capsule PO Q12HR URSULA Ferrous Sulfate 324 mg 07/31/21 08:00 Ferrous Sulfate 324 Mg Tablet PO BIDWM URSULA Glucagon 1 m
[2021-07-31] MEDS: DOCUSATE SODIUM 100 MG CAPSULE PO ×2 (08:47→20:22)
[2021-07-31] MEDS: PANTOPRAZOLE SODIUM IV 40 MG VIAL IV PUSH (08:47)
[2021-07-31] MEDS: FERROUS SULFATE 324 MG TABLET PO ×2 (08:47→17:23)
[2021-07-31 09:05] LABS: Free T4 Free Thyroxine Reflex 1.18 ng/dL (0.78-2.19)
[2021-07-31 10:48] LABS: Total Triiodothyronine (T3) 0.83 NG/ML (0.97-1.69)
--- NOTE | 2021-07-31 12:00 | P.PNIM_ITS ---
Progress Note: A&P Assessment and Plan (1) Acute GI bleeding: Code(s): K92.2 - Gastrointestinal hemorrhage, unspecified Status: Acute Assessment and Plan: * acute on chronic anemia likely due to chronic GI blood loss * Hemoccult-positive stools * Gastroenterology consulted * EGD showed no obvious GI bleeding or blood loss * Colonoscopy was not performed due to patient refusing care * Protonix 40 mg IV b.i.d. * Trend labs (2) Anemia: Qualifiers: Anemia type: iron deficiency Iron deficiency anemia type: chronic blood loss Qualified Code(s): D50.0 - Iron deficiency anemia secondary to blood loss (chronic) Code(s): D64.9 - Anemia, unspecified Status: Acute Assessment and Plan: * Acute blood loss anemia * Hemoccult blood positive * H/H 6.5/8.3 MCV 75.1 on admission, up to 8.3/27.1 * 2 Units of PRBC given 07/29/21 * Trend labs * Transfuse as needed * Anemia labs- Iron 18, TIBC 396, % sat 5, Transferrin 265, Ferritin 12.40, B12, Folate * Ferrous sulfate 324mg PO BID with meals (3) Lung mass: Code(s): R91.8 - Other nonspecific abnormal finding of lung field Status: Acute Assessment and Plan: * history of chronic lung masses present since 2009 * CT imaging shows possible worsening of condition * PET scan recommended outpatient * masses previously had been diagnosed as fungal infection according to prior records (4) Diabetes mellitus: Qualifiers: Diabetes mellitus complication status: without complication Diabetes mellitus skilled nursing insulin use: without skilled nursing use Diabetes mellitus type: type 2 Qualified Code(s): E11.9 - Type 2 diabetes mellitus without complications Code(s): E11.9 - Type 2 diabetes mellitus without complications Status: Acute Assessment and Plan: * Glucose 140 * diet-controlled diabetes mellitus * sliding scale insulin * Accu-Cheks a.c. 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 Status: Acute Assessment and Plan: * Xarelto at home for chronic afib * Hold due to active bleed * Chadvas is 6 anticoagulation is indicated * Will await GI recommendation to restart (8) Dementia: Code(s): F03.90 - Unspecified dementia without behavioral disturbance Status: Acute Assessment and Plan: * Known history of dementia * Patient is aggressive verbally * Xanax added for comfort * Patient has no concept of time Time Spent With Patient Time with patient: Greater than 35 minutes Subjective Date/time seen: 07/31/21 1200 Interval history: Date/Time: 07/29/21 20:53 Narrative: 86-year-old female with past medical history of CHF, COPD, atrial fibrillation on chronic anticoagulation, and diabetes mellitus who presented to the ER with back pain. Lisa
--- NOTE | 2021-07-31 12:00 | PM.IMPN ---
Progress Note: A&P Assessment and Plan (1) Acute GI bleeding: Code(s): K92.2 - Gastrointestinal hemorrhage, unspecified Status: Acute Assessment and Plan: acute on chronic anemia likely due to chronic GI blood loss Hemoccult-positive stools Gastroenterology consulted EGD showed no obvious GI bleeding or blood loss Colonoscopy was not performed due to patient refusing care Protonix 40 mg IV b.i.d. Trend labs (2) Anemia: Qualifiers: Anemia type: iron deficiency Iron deficiency anemia type: chronic blood loss Qualified Code(s): D50.0 - Iron deficiency anemia secondary to blood loss (chronic) Code(s): D64.9 - Anemia, unspecified Status: Acute Assessment and Plan: Acute blood loss anemia Hemoccult blood positive H/H 6.5/8.3 MCV 75.1 on admission, up to 8.3/27.1 2 Units of PRBC given 07/29/21 Trend labs Transfuse as needed Anemia labs- Iron 18, TIBC 396, % sat 5, Transferrin 265, Ferritin 12.40, B12, Folate Ferrous sulfate 324mg PO BID with meals (3) Lung mass: Code(s): R91.8 - Other nonspecific abnormal finding of lung field Status: Acute Assessment and Plan: history of chronic lung masses present since 2009 CT imaging shows possible worsening of condition PET scan recommended outpatient masses previously had been diagnosed as fungal infection according to prior records (4) Diabetes mellitus: Qualifiers: Diabetes mellitus complication status: without complication Diabetes mellitus lobsterman insulin use: without lobsterman use Diabetes mellitus type: type 2 Qualified Code(s): E11.9 - Type 2 diabetes mellitus without complications Code(s): E11.9 - Type 2 diabetes mellitus without complications Status: Acute Assessment and Plan: Glucose 140 diet-controlled diabetes mellitus sliding scale insulin Accu-Cheks a.c. HS hypoglycemia protocol (5) Hypertension: Code(s): I10 - Essential (primary) hypertension Status: Acute Assessment and Plan: BP is elevated 148/68 Continue lisinopril 10mg PO daily Trend BP Adjust medications as needed (6) Leukocytosis: Code(s): D72.829 - Elevated white blood cell count, unspecified Status: Acute Assessment and Plan: WBC is 13.8 Could be from malignancy Continue to trend repeat UA for a culture (7) assistant terminal manager current use of anticoagulant: Code(s): Z79.01 - assistant terminal manager (current) use of anticoagulants Status: Acute Assessment and Plan: Xarelto at home for chronic afib Hold due to active bleed Chadvas is 6 anticoagulation is indicated Will await GI recommendation to restart (8) Dementia: Code(s): F03.90 - Unspecified dementia without behavioral disturbance Status: Acute Assessment and Plan: Known history of dementia Patient is aggressive verbally Xanax added for comfort Patient has no concept of time Time Spent With Patient Time with patient: Greater than 35 minutes Subjective Date/time seen: 07/31/21 1200 Interval history: Date/Time: 07/29/21 20:53 Narrative: 86-year-old female with past medical history of CHF, COPD, atrial fibrillation on chronic anticoagulation, and diabetes mellitus who presented to the ER with back pain. Patient has had difficulty with pain up and down her entire spine for many years. The PA at her caregivers office gave her a prescription for Tylenol codeine last month. She recently ran out of the Tylenol codeine. She reports that her pain is now severe. She does not like that PA at the doctor's office and was waiting to get in to see her regular primary care doctor who is evidently out of town. She reports that no other doctor will refill her pain medications that she came to the ER for evaluation. She reports that she has still been able to ambulate with her walker. She denie
[2021-07-31 12:08] LABS: Glucose Point of Care 208 mg/dl (65-105)
[2021-07-31] MEDS: INSULIN ASPART (*BKC) 100 UNITS/ML SUB-Q (12:43)
[2021-07-31] MEDS: ALPRAZolam (*CRX) 0.25 MG TABLET PO (15:25)
[2021-07-31] MEDS: LORazepam INJ (*CRX) 2 MG/ML VIAL 0.25 MG IV PUSH (15:25)
[2021-07-31 17:38] LABS: Glucose Point of Care 178 mg/dl (65-105)
--- NOTE | 2021-07-31 18:19 | PC.NURSE ---
This patient, Lucia Kaur, was transferred to [ [id number]] on 07/31/21 at 1819. Personal belongings sent with patient. Report given to [ Leona GRAY]. Appropriate documentation sent with patient.
[2021-07-31 18:54] LABS: Add Urine Microscopic? YES; Appearance Urine Cloudy (Clear); Bacteria Urine 4+ /hpf; Bilirubin Urine Negative (Negative); Blood Urine 2+ (Negative); Color Urine Yellow (Yellow); Glucose Urine UA Negative (Negative); Ketones Urine Negative (Negative); Leukocyte Esterase Ur 2+ LEU/UL (Negative); Mucus Urine Rare /lpf; Nitrate Urine Positive (Negative); Protein Urine Negative (Negative); Specific Grav Ur 1.021 (1.001-1.035); Squamous Epithelial Cell Urine Few /hpf (Few); Urobilinogen Urine Negative mg/dL (<2.0); WBC Urine 31-50 /hpf
[2021-07-31 20:54] LABS: Glucose Point of Care 182 mg/dl (65-105)
[2021-08-01] VITALS (13 sets, daily range): BP systolic 138–184; BP diastolic 46–73; PULSE 71–92; RESP 18–20; TEMP 36.2–37.1; O2SAT 93–100
--- NOTE | 2021-08-01 01:14 | PC.NURSE ---
Daylight Savings Time For Daylight Savings Time Ending in the Fall - Clocks are moved back. For Daylight Savings Time Beginning in the Spring - Clocks are moved ahead. For [facility], the time of change occurs at 0200 hrs. Time is taken from the counter server. This entry on the patient's chart recognizes the change in time reflected during documentation. Example: 2 entries for vital signs may be charted for 0200 hrs.
[2021-08-01 07:57] LABS: Basophils Percent Auto 0.3 % (0.2-1.2); Eosinophils Absolute Auto 0.4 K/mm3 (0-0.3); Eosinophils Percent Auto 3.4 % (0-4.4); Hematocrit 28.1 % (37.0-47.0); Hemoglobin 8.5 g/dL (12.0-15.0); Immature Granulocyte Absolute 0.06 K/mm3 (0.00-0.031); Immature Granulocyte Percent A 0.5 % (0-0.5); Lymphocytes Absolute Auto 1.09 K/mm3 (0.9-3.2); Lymphocytes Percent Auto 9.3 % (18.3-44.2); Mean Corpuscular HGB Conc 30.2 g/dl (32-36); Mean Corpuscular Volume 79.4 fl (80-100); Monocytes Absolute Auto 1.2 K/mm3 (0.1-0.6); Monocytes Percent Auto 9.9 % (2.6-8.5); Neutrophils Percent Auto 76.6 % (45.5-73.1); Platelet Count Result 285 k/mm3 (150-375); Red Blood Count 3.54 M/mm3 (4.2-5.4); Red Cell Distribution Width 20.8 % (11.5-14.5); White Blood Count 11.8 K/mm3 (4.5-10.0)
--- NOTE | 2021-08-01 08:10 | WPDGIPROGNO ---
Progress Note: A&P Assessment and Plan (1) Acute GI bleeding: Code(s): K92.2 - Gastrointestinal hemorrhage, unspecified Status: Acute Assessment and Plan: No additional bleeding noted. Hemoglobin 8.5 essentially stable. Patient refusing additional workup. Anticipate that she will do best if anticoagulation is held. She does have a prior history of colon polyps raising this is a possible etiology. Differential diagnosis could include diverticular disease hemorrhoids etc.. No active bleeding at present. we will allow her to eat regular diet. (2) [facility] current use of anticoagulant: Code(s): Z79.01 - rodent exterminator (current) use of anticoagulants Status: Acute Assessment and Plan: Anticoagulation will need to be held given her significant bleeding at this point. (3) Atrial fibrillation: Code(s): I48.91 - Unspecified atrial fibrillation Status: Acute Subjective Date/time seen: 08/01/21 08:10 Patient alert and conversant. Denies any ongoing bleeding. Refuses to consider any additional evaluation. No bleeding noted once she discontinued the anticoagulation. Hemoglobin stable but remains low at this point. Review of Systems Review of Systems: All systems reviewed & are unremarkable except as noted in HPI and below Exam Narrative: Physical exam reveals patient be alert vital signs stable. Lungs are clear. Heart without murmur. Abdomen is soft and nontender. Objective Data Vital Signs Vital Signs: Vital Signs - 24 hr 07/31/21 10:00 07/31/21 12:00 07/31/21 12:10 Temperature 97.5 F L Pulse Rate 70 79 69 Respiratory Rate 20 20 Blood Pressure 122/53 L Pulse Oximetry 97 97 07/31/21 14:00 07/31/21 15:57 07/31/21 16:00 Temperature 97.2 F L Pulse Rate 76 80 73 Respiratory Rate 22 H Blood Pressure 152/61 H Pulse Oximetry 96 07/31/21 20:00 08/01/21 00:00 08/01/21 01:44 CDT Temperature 97.3 F L 97.7 F Pulse Rate 75 74 Respiratory Rate 20 18 Blood Pressure 136/52 L 143/58 H Pulse Oximetry 95 95 95 08/01/21 04:00 Temperature 98.2 F Pulse Rate 71 Respiratory Rate 18 Blood Pressure 150/56 H Pulse Oximetry 97 Intake/Output Intake/Output: Intake & Output 07/29/21 07/30/21 07/31/21/07/21 23:59 23:59 23:59 22:59 Intake Total 336 1008 840 500 Output Total 997 527 4340 600 Balance 36 735 -610 -100 Meds/Results Medications: Active Medications Generic Name Dose Route Start Last Admin Trade Name Freq PRN Reason Stop Dose Admin Acetaminophen/Codeine Phosphate 1 tab 07/30/21 02:32 07/31/21 17:22 Acetaminophen/Codeine (*Crx) 300/30 Mg Tablet PO 08/29/21 02:31 1 tab Q6H PRN Administration Pain 7-10 Alprazolam 0.25 mg 07/31/21 14:47 07/31/21 15:25 Alprazolam (*Crx) 0.25 Mg Tablet PO 0.25 mg TID PRN Administration Anxiety Codeine Sulfate 30 mg 07/30/21 02:44 07/31/21 17:22 Codeine Sulfate (*Crx) 30 Mg Tablet PO 08/29/21 02:43 30 mg Q6H PRN Administration Pain 7-10 Dextrose 12.5 gm 07/29/21 22:05 Dextrose 50% 25 Gm/50 Ml Syringe IV PUSH PRN PRN Hypoglycemia Protocol Docusate Sodium 100 mg 07/31/21 09:00 07/31/21 20:22 Docusate Sodium 100 Mg Capsule PO 100 mg Q12HR URSULA Administration Ferrous Sulfate 324 mg 07/31/21 08:00 07/31/21 17:23 Ferrous Sulfate 324 Mg Tablet PO 324 mg BIDWM URSULA Administration Glucagon 1 mg 07/29/21 22:05 Glucagon For Inj 1 Mg Vial IM PRN PRN Hypoglycemia Protocol Glucose 15 gm 07/29/21 22:05 Glucose Oral Gel 15 Gm Of Glucse In 37.5 Gm Tube PO PRN PRN Hypoglycemia Protocol Hydralazine HCl 10 mg 07/30/21 12:26 Hydralazine Hcl 20 Mg/Ml Vial IV PUSH Q6H PRN Blood Pressure - High Dextrose 1,000 mls @ 100 mls/hr 07/29/21 22:05 Dextrose 5% 1,000 Ml IVPB PRN PRN Hypoglycemia Protocol Insulin Aspart 2 - 5 units 07/31/21 12:00 07/31/21 20:24
[2021-08-01 08:13] LABS: Alanine Aminotransferase 10 U/L (4-35); Albumin Level 3.5 g/dL (3.5-5.1); Alkaline Phosphatase 64 U/L (38-126); Anion Gap 5 mmol/L (8-16); Aspartate Amino Transferase 18 U/L (14-36); Bilirubin,Total 0.7 mg/dL (0.2-1.3); Blood Urea Nitrogen 20 mg/dL (7-17); Calcium 8.4 mg/dL (8.4-10.2); Carbon Dioxide 25 mmol/L (22-30); Chloride 106 mmol/L (98-107); Estimated CRCL calculation 46 ml/min; Estimated Glomerular Filt Rate > 60; Glucose 148 mg/dL (65-110); Magnesium 2.2 mg/dL (1.6-2.3); Sodium 136 mmol/L (137-145)
[2021-08-01] MEDS: FERROUS SULFATE 324 MG TABLET PO ×2 (08:13→17:13)
[2021-08-01] MEDS: PANTOPRAZOLE 40 MG TABLET PO (08:13)
[2021-08-01] MEDS: DOCUSATE SODIUM 100 MG CAPSULE PO ×2 (08:13→20:35)
[2021-08-01 08:36] LABS: Glucose Point of Care 225 mg/dl (65-105)
--- NOTE | 2021-08-01 09:00 | P.PNIM_ITS ---
Progress Note: A&P Assessment and Plan (1) Acute GI bleeding: Code(s): K92.2 - Gastrointestinal hemorrhage, unspecified Status: Acute Assessment and Plan: * acute on chronic anemia likely due to chronic GI blood loss * Hemoccult-positive stools * Gastroenterology consulted * EGD showed no obvious GI bleeding or blood loss * Colonoscopy was not performed due to patient refusing care * Protonix 40 mg IV b.i.d. * Trend labs (2) Anemia: Qualifiers: Anemia type: iron deficiency Iron deficiency anemia type: chronic blood loss Qualified Code(s): D50.0 - Iron deficiency anemia secondary to blood loss (chronic) Code(s): D64.9 - Anemia, unspecified Status: Acute Assessment and Plan: * Acute blood loss anemia * Hemoccult blood positive * H/H 6.5/8.3 MCV 75.1 on admission, up to 8.5/28.1 * 2 Units of PRBC given 07/29/21 * Trend labs * Transfuse as needed * Anemia labs- Iron 18, TIBC 396, % sat 5, Transferrin 265, Ferritin 12.40, B12 844, Folate 14.8 * Ferrous sulfate 324mg PO BID with meals (3) Lung mass: Code(s): R91.8 - Other nonspecific abnormal finding of lung field Status: Acute Assessment and Plan: * history of chronic lung masses present since 2009 * CT imaging shows possible worsening of condition * PET scan recommended outpatient * masses previously had been diagnosed as fungal infection according to prior records * Oncology consulted thank you * Consider biopsy (4) Diabetes mellitus: Qualifiers: Diabetes mellitus complication status: without complication Diabetes mellitus group home insulin use: without rn long term care use Diabetes mellitus type: type 2 Qualified Code(s): E11.9 - Type 2 diabetes mellitus without complications Code(s): E11.9 - Type 2 diabetes mellitus without complications Status: Acute Assessment and Plan: * Glucose 148 * diet-controlled diabetes mellitus * sliding scale insulin * Accu-Cheks a.c. HS * hypoglycemia protocol (5) Hypertension: Code(s): I10 - Essential (primary) hypertension Status: Acute Assessment and Plan: * BP is elevated 164/66 * Continue lisinopril 10mg PO daily * add hydralazine 10mg IV PRN SBP >160 * Trend BP * Adjust medications as needed (6) Leukocytosis: Code(s): D72.829 - Elevated white blood cell count, unspecified Status: Acute Assessment and Plan: * WBC is 11.8 * Could be from malignancy * Continue to trend * repeat UA for a culture (7) group home current use of anticoagulant: Code(s): Z79.01 - manager terminal (current) use of anticoagulants Status: Acute Assessment and Plan: * Xarelto at home for chronic afib * Hold due to active bleed * Chadvas is 6 anticoagulation is indicated * Will await GI recommendation to restart (8) Dementia: Code(s): F03.90 - Unspecified dementia without behavioral disturbance Status: Acute Assessment and Plan: * Known history of dementia * Patient is aggressive verbally * Xanax added for comfort * Zyprexa 5mg IM once * Patient has no concept of time (9) CVA (cerebral vascular accident): Code(s): I63.9 - Cerebral infarction, unspecified Status: Acute Assessment and Plan: * Head CT shows 1. Region of hypoattenuation of the right temporal lobe
--- NOTE | 2021-08-01 09:00 | PM.IMPN ---
Progress Note: A&P Assessment and Plan (1) Acute GI bleeding: Code(s): K92.2 - Gastrointestinal hemorrhage, unspecified Status: Acute Assessment and Plan: acute on chronic anemia likely due to chronic GI blood loss Hemoccult-positive stools Gastroenterology consulted EGD showed no obvious GI bleeding or blood loss Colonoscopy was not performed due to patient refusing care Protonix 40 mg IV b.i.d. Trend labs (2) Anemia: Qualifiers: Anemia type: iron deficiency Iron deficiency anemia type: chronic blood loss Qualified Code(s): D50.0 - Iron deficiency anemia secondary to blood loss (chronic) Code(s): D64.9 - Anemia, unspecified Status: Acute Assessment and Plan: Acute blood loss anemia Hemoccult blood positive H/H 6.5/8.3 MCV 75.1 on admission, up to 8.5/28.1 2 Units of PRBC given 07/29/21 Trend labs Transfuse as needed Anemia labs- Iron 18, TIBC 396, % sat 5, Transferrin 265, Ferritin 12.40, B12 844, Folate 14.8 Ferrous sulfate 324mg PO BID with meals (3) Lung mass: Code(s): R91.8 - Other nonspecific abnormal finding of lung field Status: Acute Assessment and Plan: history of chronic lung masses present since 2009 CT imaging shows possible worsening of condition PET scan recommended outpatient masses previously had been diagnosed as fungal infection according to prior records Oncology consulted thank you Consider biopsy (4) Diabetes mellitus: Qualifiers: Diabetes mellitus complication status: without complication Diabetes mellitus exterminator helper termite insulin use: without exterminator helper termite use Diabetes mellitus type: type 2 Qualified Code(s): E11.9 - Type 2 diabetes mellitus without complications Code(s): E11.9 - Type 2 diabetes mellitus without complications Status: Acute Assessment and Plan: Glucose 148 diet-controlled diabetes mellitus sliding scale insulin Accu-Cheks a.c. HS hypoglycemia protocol (5) Hypertension: Code(s): I10 - Essential (primary) hypertension Status: Acute Assessment and Plan: BP is elevated 164/66 Continue lisinopril 10mg PO daily add hydralazine 10mg IV PRN SBP >160 Trend BP Adjust medications as needed (6) Leukocytosis: Code(s): D72.829 - Elevated white blood cell count, unspecified Status: Acute Assessment and Plan: WBC is 11.8 Could be from malignancy Continue to trend repeat UA for a culture (7) lobsterman current use of anticoagulant: Code(s): Z79.01 - custodial (current) use of anticoagulants Status: Acute Assessment and Plan: Xarelto at home for chronic afib Hold due to active bleed Chadvas is 6 anticoagulation is indicated Will await GI recommendation to restart (8) Dementia: Code(s): F03.90 - Unspecified dementia without behavioral disturbance Status: Acute Assessment and Plan: Known history of dementia Patient is aggressive verbally Xanax added for comfort Zyprexa 5mg IM once Patient has no concept of time (9) CVA (cerebral vascular accident): Code(s): I63.9 - Cerebral infarction, unspecified Status: Acute Assessment and Plan: Head CT shows 1. Region of hypoattenuation of the right temporal lobe consistent with age-indeterminate infarct, potentially acute/subacute. 2. 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 MRI ordered to determine acute vs old, Haldolol 5mg IM once and 2mg PO ativan once per Dr. Martin Patient on xarelto at home, on hold currently due to suspected GI bleed Neuro consult thank you for your help Time Spent With Patient Time with patient: Greater than 35 minutes Subjective Date/time seen: 08/01/21 0900 Interval history: Date/Time: 07/29/21 20:53 Narrative: 86-year-old female with past medical history of CHF, COPD, atrial fibri
[2021-08-01] MEDS: OLANZapine 10 MG INJ VIAL 5 MG IM (09:30)
[2021-08-01] MEDS: ALPRAZolam (*CRX) 0.25 MG TABLET PO (10:02)
[2021-08-01] MEDS: INSULIN ASPART (*BKC) 100 UNITS/ML SUB-Q (10:04)
[2021-08-01] MEDS: ACETAMINOPHEN/CODEINE (*CRX) 300/30 MG TABLET 1 TAB PO (11:08)
[2021-08-01 11:59] LABS: Glucose Point of Care 199 mg/dl (65-105)
[2021-08-01 16:29] LABS: Glucose Point of Care 173 mg/dl (65-105)
[2021-08-01] MEDS: LORazepam (*CRX) 1 MG TABLET 2 MG PO (17:14)
[2021-08-01 21:25] LABS: Glucose Point of Care 183 mg/dl (65-105)
[2021-08-02] VITALS: PULSE 90
[2021-08-02] MEDS: CODEINE SULFATE (*CRX) 30 MG TABLET PO (02:01)
[2021-08-02] MEDS: ACETAMINOPHEN/CODEINE (*CRX) 300/30 MG TABLET 1 TAB PO (02:02)
[2021-08-02 03:13] VITALS: BP 164/70; PULSE 81; RESP 17; TEMP 36.4; O2SAT 95
[2021-08-02 04:00] VITALS: PULSE 77
[2021-08-02] MEDS: ALPRAZolam (*CRX) 0.25 MG TABLET PO (04:20)
[2021-08-02 05:48] LABS: Basophils Absolute Auto 0.1 K/mm3 (0.0-0.1); Basophils Percent Auto 0.6 % (0.2-1.2); Eosinophils Absolute Auto 0.5 K/mm3 (0-0.3); Eosinophils Percent Auto 4.2 % (0-4.4); Hematocrit 28.1 % (37.0-47.0); Hemoglobin 8.4 g/dL (12.0-15.0); Immature Granulocyte Absolute 0.05 K/mm3 (0.00-0.031); Immature Granulocyte Percent A 0.5 % (0-0.5); Lymphocytes Absolute Auto 1.25 K/mm3 (0.9-3.2); Lymphocytes Percent Auto 11.7 % (18.3-44.2); Mean Corpuscular HGB Conc 29.9 g/dl (32-36); Mean Corpuscular Hemoglobin 23.7 pg (26-34); Mean Corpuscular Volume 79.4 fl (80-100); Mean Platelet Volume 10.1 fl (7.4-10.4); Neutrophils Absolute Auto 7.9 K/mm3 (1.3-6.7); Platelet Count Result 275 k/mm3 (150-375); Red Blood Count 3.54 M/mm3 (4.2-5.4); Red Cell Distribution Width 21.3 % (11.5-14.5); White Blood Count 10.7 K/mm3 (4.5-10.0)
[2021-08-02 06:37] LABS: Platelet Estimate Adequate (Adequate)
[2021-08-02 06:38] LABS: Anisocytosis 1+ (NORMAL); Hypochromasia 1+ (NORMAL); Ovalocytes 2+ (NORMAL); Tear Drop Cells 1+ (NORMAL)
[2021-08-02 06:39] LABS: Acanthocytes 1+ (NORMAL); Target Cells 1+ (NORMAL)
[2021-08-02 06:40] LABS: Alanine Aminotransferase 12 U/L (4-35); Albumin Level 3.1 g/dL (3.5-5.1); Alkaline Phosphatase 60 U/L (38-126); Anion Gap 4 mmol/L (8-16); Aspartate Amino Transferase 21 U/L (14-36); Bilirubin,Total 0.6 mg/dL (0.2-1.3); Blood Urea Nitrogen 14 mg/dL (7-17); Calcium 8.3 mg/dL (8.4-10.2); Carbon Dioxide 25 mmol/L (22-30); Chloride 108 mmol/L (98-107); Estimated CRCL calculation 53 ml/min; Estimated Glomerular Filt Rate > 60; Glucose 141 mg/dL (65-110); Magnesium 1.8 mg/dL (1.6-2.3); Potassium 3.7 mmol/L (3.4-5.0); Sodium 137 mmol/L (137-145)
[2021-08-02 08:00] VITALS: PULSE 94
[2021-08-02 08:11] LABS: Glucose Point of Care 129 mg/dl (65-105)
[2021-08-02 08:47] VITALS: BP 169/87; PULSE 80; RESP 16; TEMP 36.6; O2SAT 98
[2021-08-02] MEDS: PANTOPRAZOLE 40 MG TABLET PO (08:49)
[2021-08-02] MEDS: DOCUSATE SODIUM 100 MG CAPSULE PO (08:49)
[2021-08-02] MEDS: FERROUS SULFATE 324 MG TABLET PO (08:50)
[2021-08-02 11:49] LABS: Glucose Point of Care 150 mg/dl (65-105)
[2021-08-02 12:21] VITALS: BP 139/58; PULSE 86; RESP 16; TEMP 36.6; O2SAT 100
--- NOTE | 2021-08-02 13:02 | PDONCCN ---
HPI - Date of Consult Date/Time: 08/02/21 13:02 Requesting Physician: Martine Grayson MD Primary Care Provider: Poly Rosado, - Consult Narrative Reason for consult: Pulmonary nodule and anemia Narrative: Lucia Kaur is a 86 year old female with history of atrial fibrillation chronic kidney stage 3 disease and COPD along with history of lung mass present since 2009 came into the hospital with the back pain. She has has been dealing with the back pain for many years and has been receiving pain prescription with codeine and Tylenol from the primary care provider. She denies any hematochezia. Her hemoccult stool was positive in the ER. She denies any weight loss. Denies any chest pain. Complain of mild shortness of breath. She has a remote history of smoking quit more than [address] scan done on July 29 showed 4.5 mm pleural based opacity in anterolateral right upper lobe, stable 4.7 mm density in the middle lobe and 2.5 mm right lower lobe nodule. Labs showed hemoglobin of 6.5. EGD showed esophageal web. Patient refused to have a colonoscopy. Review of Systems - Review of Systems All systems reviewed & are unremarkable except as noted in HPI and bel - Neurologic Reports hearing normal, Reports confusion, Reports weakness, Denies focal weakness, Denies numbness [facility] Medical History: Medical History (Last Reviewed 07/30/21 @ 12:26 by Zander Christy MD) Aortic stenosis Echocardiogram February 2015: EF 70%, moderate biatrial enlargement, mild aortic stenosis with valve area 2.2 cm, mild aortic valve regurgitation, mild pulmonary hypertension RVSP of 41 Atrial fibrillation Bipolar disorder Chronic kidney disease, stage 3 Baseline creatinine around 1 COPD (chronic obstructive pulmonary disease) PFTs October 2015: Mild to moderate obstructive ventilatory defect with severe small airway disease with acute bronchodilator response with mild restrictive ventilatory defect and markedly decreased DLCO Diabetes mellitus GERD (gastroesophageal reflux disease) Hemorrhoids History of congestive heart failure Hypertension Lung mass Present since 2009 Pulmonary hypertension Surgical History: Surgical History (Last Reviewed 07/30/21 @ 12:26 by Zander Christy MD) History of bladder suspension procedure History of colonoscopy with polypectomy Onset Date: 2011 Dr. Carrasquillo History of hip replacement, total Bilateral History of hysterectomy Status post cataract extraction of both eyes with insertion of intraocular lens Family History: Family History (Last Reviewed 07/30/21 @ 12:26 by Zander Christy MD) Mother Hypertension Heart disease Diabetes mellitus Father Acute myocardial infarction - Social History Social History: Social History (Last Reviewed 07/30/21 @ 12:26 by Zander Christy MD) Gender Identity: Gender identity (if verbalized by the patient): Female Alcohol Use: Alcohol intake: never Substance Use: Substance use: current Substance use type: marijuana Other substance usage details: TRIED MARIJUANA FOR 1ST TIME FOR PAIN-DIDNT LIKE IT Last use: 07/28/21 Others: Spiritual care concerns: No Smoking Status: Smoking status: Former smoker Tobacco type: cigarettes Smoking end date: 07/29/85 Smoking Pack-years: Smoking packs per day: 1.5 Smoking cigarettes per day: 30.0 Years smoked: 30 Smoking pack-years: 45.00 Meds Home Medications Medication Instructions Recorded Confirmed Type lisinopril 10 mg PO DAILY 03/16/21 07/29/21 History rivaroxaban [Xarelto] 20 mg PO DAILY 03/16/21 07/29/21 History acetaminophen-codeine 1 tablet PO Q6H 07/29/21 07/29/21 History Allergies Allergy/AdvReac Type Severity Reaction Status Date / Time No Known Allergies Allergy Verified 07/30/21 12:03 Results - Labs CBC & Chem 7: 08/02/21 05:40 08/02/21 05:40 Labs: [facility]
--- NOTE | 2021-08-02 13:44 | P.DS_ITS ---
DS: Admitting Diagnosis Discharge Date Date of service: 08/02/21 at 13:44 Admitting Diagnosis Chronic Iron deficiency anemia DS: Discharge Diagnosis Discharge Diagnosis (1) Acute GI bleeding: Code(s): K92.2 - Gastrointestinal hemorrhage, unspecified Status: Acute Assessment and Plan: * acute on chronic anemia likely due to chronic GI blood loss * Hemoccult-positive stools * Gastroenterology consulted * EGD showed no obvious GI bleeding or blood loss * Colonoscopy was not performed due to patient refusing care * Protonix 40 mg IV b.i.d. * Trend labs (2) Anemia: Qualifiers: Anemia type: iron deficiency Iron deficiency anemia type: chronic blood loss Qualified Code(s): D50.0 - Iron deficiency anemia secondary to blood loss (chronic) Code(s): D64.9 - Anemia, unspecified Status: Acute Assessment and Plan: * Acute blood loss anemia * Hemoccult blood positive * H/H 6.5/8.3 MCV 75.1 on admission, up to 8.5/28.1 * 2 Units of PRBC given 07/29/21 * Trend labs * Transfuse as needed * Anemia labs- Iron 18, TIBC 396, % sat 5, Transferrin 265, Ferritin 12.40, B12 844, Folate 14.8 * Ferrous sulfate 324mg PO BID with meals (3) Lung mass: Code(s): R91.8 - Other nonspecific abnormal finding of lung field Status: Acute Assessment and Plan: * history of chronic lung masses present since 2009 * CT imaging shows possible worsening of condition * PET scan recommended outpatient * masses previously had been diagnosed as fungal infection according to prior records * Oncology consulted thank you * Consider biopsy (4) Diabetes mellitus: Qualifiers: Diabetes mellitus type: type 2 Diabetes mellitus group home insulin use: without group home use Diabetes mellitus complication status: without comp lication Qualified Code(s): E11.9 - Type 2 diabetes mellitus without complications Code(s): E11.9 - Type 2 diabetes mellitus without complications Status: Acute Assessment and Plan: * Glucose 148 * diet-controlled diabetes mellitus * sliding scale insulin * Accu-Cheks a.c. HS * hypoglycemia protocol (5) Hypertension: Code(s): I10 - Essential (primary) hypertension Status: Acute Assessment and Plan: * BP is elevated 164/66 * Continue lisinopril 10mg PO daily * add hydralazine 10mg IV PRN SBP >160 * Trend BP * Adjust medications as needed (6) Leukocytosis: Code(s): D72.829 - Elevated white blood cell count, unspecified Status: Acute Assessment and Plan: * WBC is 11.8 * Could be from malignancy * Continue to trend * repeat UA for a culture (7) intermediate current use of anticoagulant: Code(s): Z79.01 - intermediate (current) use of anticoagulants Status: Acute Assessment and Plan: * Xarelto at home for chronic afib * Hold due to active bleed * Chadvas is 6 anticoagulation is indicated * Will await GI recommendation to restart (8) Dementia: Code(s): F03.90 - Unspecified dementia without behavioral disturbance Status: Acute Assessment and Plan: * Known history of dementia * Patient is aggressive verbally * Xanax added for comfort * Zyprexa 5mg IM once * Patient has no concept of time (9) CVA (cerebral vascular accident): Code(s): I63.9 - Cerebral i
--- NOTE | 2021-08-02 13:44 | PM.DS ---
DS: Admitting Diagnosis Discharge Date Date of service: 08/02/21 at 13:44 Admitting Diagnosis Chronic Iron deficiency anemia DS: Discharge Diagnosis Discharge Diagnosis (1) Acute GI bleeding: Code(s): K92.2 - Gastrointestinal hemorrhage, unspecified Status: Acute Assessment and Plan: acute on chronic anemia likely due to chronic GI blood loss Hemoccult-positive stools Gastroenterology consulted EGD showed no obvious GI bleeding or blood loss Colonoscopy was not performed due to patient refusing care Protonix 40 mg IV b.i.d. Trend labs (2) Anemia: Qualifiers: Anemia type: iron deficiency Iron deficiency anemia type: chronic blood loss Qualified Code(s): D50.0 - Iron deficiency anemia secondary to blood loss (chronic) Code(s): D64.9 - Anemia, unspecified Status: Acute Assessment and Plan: Acute blood loss anemia Hemoccult blood positive H/H 6.5/8.3 MCV 75.1 on admission, up to 8.5/28.1 2 Units of PRBC given 07/29/21 Trend labs Transfuse as needed Anemia labs- Iron 18, TIBC 396, % sat 5, Transferrin 265, Ferritin 12.40, B12 844, Folate 14.8 Ferrous sulfate 324mg PO BID with meals (3) Lung mass: Code(s): R91.8 - Other nonspecific abnormal finding of lung field Status: Acute Assessment and Plan: history of chronic lung masses present since 2009 CT imaging shows possible worsening of condition PET scan recommended outpatient masses previously had been diagnosed as fungal infection according to prior records Oncology consulted thank you Consider biopsy (4) Diabetes mellitus: Qualifiers: Diabetes mellitus type: type 2 Diabetes mellitus shelter insulin use: without extermination supervisor use Diabetes mellitus complication status: without complication Qualified Code(s): E11.9 - Type 2 diabetes mellitus without complications Code(s): E11.9 - Type 2 diabetes mellitus without complications Status: Acute Assessment and Plan: Glucose 148 diet-controlled diabetes mellitus sliding scale insulin Accu-Cheks a.c. 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 Region of hypoattenuation of the right temporal lobe consistent with age-indeterminate infarct, potentially acute/subacute. 2. 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 MRI ordered to determine acute vs old, Haldolol 5mg IM once and 2mg PO ativan once per Dr. Martin Patient on xarelto at home, on hold currently due to suspected GI bleed Neuro consult thank you for your help DS: Summary Hospital Course Hospital Course: Patient is a 86-year-old female with a past medical history o
--- NOTE | 2021-08-03 08:06 | PC.NURSE ---
Urine cx showing ESBL. Home on Amoxacillin/Clavulanate, which is sensitive to. Santos ARIZMENDI NP notified.
[2021-08-03 17:15] LABS: Soluble Transferrin Receptor 4.07 mg/L (0.76-1.76)
== END 2021-08-02 15:17 | disposition home or self-care (01) | DRG 377 ==
LOC: ANHED 16:29 → ANHIMU 19:46 → ANH2MED 08-02 08:06 → ANHIMU 08-03 14:02
PROVIDERS: Internal Medicine; Internal Medicine Gastroenterology; Admitting Provider Internal Medicine; Emergency Provider Emergency Medicine; PCP Family Medicine; Visit Provider Nurse Practitioner
PROC: 0DJ08ZZ Inspection of Upper Intestinal Tract, Via Natural or Artificial Opening Endoscopic (ICD-10-PCS; CPT 43235; principal; 2021-07-30 14:00)
DX: K92.2 Gastrointestinal hemorrhage, unspecified (principal); Q39.4 Esophageal web; D62 Acute posthemorrhagic anemia; N39.0 Urinary tract infection, site not specified; I48.20 Chronic atrial fibrillation, unspecified; I13.0 Hypertensive heart and chronic kidney disease with heart failure and stage 1 through stage 4 chronic kidney disease, or unspecified chronic kidney disease; N18.30 Chronic kidney disease, stage 3 unspecified; I50.9 Heart failure, unspecified; R91.8 Other nonspecific abnormal finding of lung field; D72.829 Elevated white blood cell count, unspecified; F03.90 Unspecified dementia, unspecified severity, without behavioral disturbance, psychotic disturbance, mood disturbance, and anxiety; E11.22 Type 2 diabetes mellitus with diabetic chronic kidney disease; J44.9 Chronic obstructive pulmonary disease, unspecified; K21.9 Gastro-esophageal reflux disease without esophagitis; R91.1 Solitary pulmonary nodule; I35.0 Nonrheumatic aortic (valve) stenosis; Z96.643 Presence of artificial hip joint, bilateral; E66.9 Obesity, unspecified; Z68.31 Body mass index [BMI] 31.0-31.9, adult; Z79.01 Long term (current) use of anticoagulants; Z86.73 Personal history of transient ischemic attack (TIA), and cerebral infarction without residual deficits; Z90.710 Acquired absence of both cervix and uterus; Z98.42 Cataract extraction status, left eye; Z98.41 Cataract extraction status, right eye; Z87.891 Personal history of nicotine dependence
CPT/HCPCS: 36415; 36430; 70450; 71275; 74174; 80048; 80053; 81001; 82607; 82728; 82746; 82948; 83540; 83550; 83690; 83735; 84238; 84439; 84443; 84466; 84480; 85025; 85027; 85046; 85055; 85610; 85730; 86850; 86900; 86901; 86920; 87077; 87086; 87088; 87186; 96374; 96375; 96376; 97110; 97161; 97165; 99285; A9270; C9113; G0378; J0692; J1815; J2060; J2270; J2405; J2704; J3370; J7050; J7120; P9016; Q9967